=== PATIENT | female | born 1935 | race Caucasian/White ===

== ENCOUNTER 2017-08-03 15:03 | Outpatient (CLI) | payer MEDICARE | END 2017-08-03 15:04 | disposition home or self-care (01) | LOC: BICRAD 15:03 | PROVIDERS: ATTEND Internal Medicine | DX: R07.9 Chest pain, unspecified (principal); R07.2 Precordial pain; M94.0 Chondrocostal junction syndrome [Tietze] | CPT/HCPCS: 71046; 71120 ==

== ENCOUNTER 2018-03-01 08:28 | Outpatient (CLI) | payer MEDICARE ==
--- NOTE | 2018-03-01 09:52 | BD ---
DEXA BONE DENSITY STUDY: History: Postmenopausal. Lumbar Spine: BMD (g/cm2) L1 1.076 T-Score: +0.8 L2 1.230 T-Score: +1.7 L3 1.419 T-Score: +3.0 L4 1.584 T-Score: +4.8 L1-L4 1.333 T-Score: +2.6 Femoral Neck: 0.762 T-Score: -0.8 Total Femur: 0.965 T-Score: +0.2 Impression: 1. Normal bone mineral density of the lumbar spine and left femoral neck. 2. 10-year fracture risk of major osseous lumbar structures is 11%, hip fracture is 2.2%. These fract ure probabilities are calculated for an untreated patient. POS: ALFONZO
== END 2018-03-01 08:29 | disposition home or self-care (01) ==
LOC: BICMAMMO 08:28
PROVIDERS: ATTEND Internal Medicine
DX: Z12.31 Encounter for screening mammogram for malignant neoplasm of breast (principal); Z13.820 Encounter for screening for osteoporosis; R92.1 Mammographic calcification found on diagnostic imaging of breast
CPT/HCPCS: 77063; 77067; 77080